=== PATIENT | female | born 1995 | race Caucasian/White ===

== ENCOUNTER 2022-02-04 19:00 | Inpatient (IN) | payer BC, OTHER ==
[2022-02-05] MEDS ORDERED: Ibuprofen 800 MG TAB PO PRN (08:54)
[2022-02-05] MEDS ORDERED: HYDROcodone/Acetaminophen 5/325 mg Tablet PO PRN (08:54)
[2022-02-05] MEDS ORDERED: Acetaminophen 500 MG TAB PO PRN (08:54)
[2022-02-05] MEDS ORDERED: Butorphanol Tartrate 1 MG/ML VIAL SLOW IVP PRN (08:54)
[2022-02-05] MEDS ORDERED: Promethazine HCl 25 MG/ML VIAL IM PRN ×2 (08:54→19:55)
[2022-02-05] MEDS ORDERED: Diphenoxylate HCl/Atropine Tablet PO PRN (08:54)
[2022-02-05] MEDS ORDERED: Misoprostol 200 MCG TAB PR PRN (08:54)
[2022-02-05] MEDS ORDERED: Carboprost 250 MCG/ML AMP IM PRN (08:54)
[2022-02-05] MEDS ORDERED: Ondansetron PF 4 MG/2 ML Vial IVP PRN ×2 (08:54→19:55)
[2022-02-05] MEDS ORDERED: Lidocaine 1% (PF) 30 ML VIAL SC PRN (08:54)
[2022-02-05] MEDS ORDERED: Methylergonovine 0.2 MG/ML VIAL IM PRN (08:54)
[2022-02-05] MEDS ORDERED: hydrALAZINE 20 MG/ML VIAL SLOW IVP PRN (08:54)
[2022-02-05] MEDS ORDERED: NS w/ Oxytocin 30 units 500 ML IV SCH ×2 (09:00)
[2022-02-05] MEDS: Lactated Ringer's 1,000 ML IV SCH (14:10)
[2022-02-05 14:43] LABS: Hemoglobin 11.3 g/dL (12.0-15.5); Mean Corpuscular HGB CONC 32.9 g/dL (32.0-36.0); Mean Corpuscular Hemoglobin 26.5 pg (27.0-33.0); Mean Corpuscular Volume 80.5 fl (81.6-98.3); Mean Platelet Volume 11.6 fl (7.4-10.4); Platelet Count 357 10x3/uL (150-450); RBC Distribution Width 16.1 % (11.5-14.5); Red Blood Cell (RBC) Count 4.26 10x6/uL (3.90-5.03); White Blood Cell (WBC) Count 11.1 10x3/uL (3.5-10.5)
[2022-02-05 15:05] VITALS: BMI 44.2
[2022-02-05 15:15] LABS: HBSAg Index 0.21 S/CO (0-0.99); Hep B Surf Ag Non-Reactive S/CO (NonReactive); Syphilis Antibody Nonreactive (Nonreactive); Syphilis Antibody Index 0.03 S/CO (<1.00 Non-Reactive)
[2022-02-05] MEDS ORDERED: Fentanyl 2 mcg/Bup 0.1% Cadd 100 ML ONE (19:00)
[2022-02-05] MEDS ORDERED: Acetaminophen 325 MG TAB PO PRN (19:55)
[2022-02-05] MEDS ORDERED: Naloxone HCl 0.4 mg/ml Vial IVP PRN ×2 (19:55)
[2022-02-05] MEDS ORDERED: diphenhydrAMINE 50 MG/ML VIAL IVP PRN (19:55)
[2022-02-05] MEDS ORDERED: Moisturizing Cream (Eucerin) 113 GM JAR TOP PRN (19:55)
[2022-02-05] MEDS ORDERED: Lactated Ringer's 500 ML IV PRN (19:55)
[2022-02-05] MEDS ORDERED: ePHEDrine Sulfate 50 MG/10 ML VIAL SLOW IVP PRN (19:55)
[2022-02-05] MEDS ORDERED: Communication Order-Pharmacy FS SCH (20:00)
[2022-02-05] MEDS ORDERED: Fentanyl 2 mcg/Bupivacaine 0.1% Cassette 100 ML EPIDURAL SCH (20:00)
[2022-02-05 22:41] LABS: SARS-CoV-2 NAA Rapid Test Not Detected (NotDetected)
[2022-02-05 22:50] LABS: ALT (SGPT) 23 U/L (8-55); AST (SGOT) 33 U/L (5-34); Albumin 3.5 g/dL (3.5-5.0); Alkaline Phosphatase 125 U/L (40-110); Anion Gap 18 mmol/L (10-20); BUN (Urea Nitrogen) 11 mg/dL (7.0-18.7); Bilirubin, Total 0.2 mg/dL (0.2-1.2); Calc. Creatinine Clearance 256 mL/min (70-130); Calcium 9.4 mg/dL (7.8-10.44); Carbon Dioxide 17 mmol/L (22-29); Chloride 106 mmol/L (98-107); Estimated GFR 127; Globulin 3.2 g/dL (2.4-3.5); Glucose 117 mg/dL (70-105); Potassium 4.7 mmol/L (3.5-5.1); Protein, Total 6.7 g/dL (6.0-8.3); Sodium 136 mmol/L (136-145)
[2022-02-06] MEDS ORDERED: diphenhydrAMINE 25 MG CAP PO PRN (04:41)
[2022-02-06] MEDS ORDERED: Ondansetron PF 4 MG/2 ML Vial IVP PRN (04:41)
[2022-02-06] MEDS ORDERED: Preparation H Ointment 28 GM TUBE PR PRN (04:41)
[2022-02-06] MEDS ORDERED: Benzocaine-Menthol 82.5 ML CAN TOP PRN (04:41)
[2022-02-06] MEDS ORDERED: Boostrix 0.5 ML (Tdap) VIAL (>/=7 yrs of age) IM ONE (04:41)
[2022-02-06] MEDS ORDERED: Promethazine HCl 25 MG/ML VIAL IM PRN (04:41)
[2022-02-06] MEDS ORDERED: HYDROcodone/Acetaminophen 5/325 mg Tablet PO PRN ×2 (04:41)
[2022-02-06] MEDS ORDERED: Bisacodyl 10 MG SUPP PR PRN (04:41)
[2022-02-06] MEDS ORDERED: Lanolin Ointment 7 GM TUBE TOP PRN (04:41)
[2022-02-06] MEDS ORDERED: hydrALAZINE 20 MG/ML VIAL SLOW IVP PRN (04:41)
[2022-02-06] MEDS ORDERED: Milk Of Magnesia 30 ML UDCUP PO PRN (04:41)
[2022-02-06] MEDS: Docusate 100 MG CAP PO SCH ×2 (09:33→21:18)
[2022-02-06] MEDS: Ferrous Sulfate 325 MG TAB PO SCH ×2 (09:33→19:11)
[2022-02-06] MEDS: Ibuprofen 800 MG TAB PO SCH ×2 (09:33→17:53)
[2022-02-06] MEDS: Prenatal Vitamin 1 TAB PO SCH (09:34)
[2022-02-06] MEDS: Labetalol HCl 100 MG TAB PO SCH ×2 (10:37→21:18)
[2022-02-06] MEDS: Lactated Ringer's 1,000 ML IV SCH (13:40)
[2022-02-07] MEDS: Ibuprofen 800 MG TAB PO SCH ×2 (01:49→10:03)
[2022-02-07] MEDS: Ferrous Sulfate 325 MG TAB PO SCH (07:10)
[2022-02-07] MEDS: Prenatal Vitamin 1 TAB PO SCH (09:28)
[2022-02-07] MEDS: Labetalol HCl 100 MG TAB PO SCH (09:28)
[2022-02-07] MEDS: Docusate 100 MG CAP PO SCH (09:28)
[2022-02-07 09:32] VITALS: BP 130/72; TEMP 98.6
== END 2022-02-07 13:36 | disposition home or self-care (01) | DRG 807 ==
LOC: CSHLD 02-05 13:36 → CSHPED 02-06 09:50
PROVIDERS: ADMIT Student in an Organized Health Care Education/Training Program; ATTEND Student in an Organized Health Care Education/Training Program
PROC: 10E0XZZ Delivery of Products of Conception, External Approach (ICD-10-PCS; principal; 2022-02-05)
PROC: 0HQ9XZZ Repair Perineum Skin, External Approach (ICD-10-PCS; 2022-02-05)
PROC: 10907ZC Drainage of Amniotic Fluid, Therapeutic from Products of Conception, Via Natural or Artificial Opening (ICD-10-PCS; 2022-02-05)
DX: O48.0 Post-term pregnancy (principal); Z37.0 Single live birth; Z20.822 Contact with and (suspected) exposure to COVID-19; Z3A.41 41 weeks gestation of pregnancy; O76 Abnormality in fetal heart rate and rhythm complicating labor and delivery; O70.0 First degree perineal laceration during delivery
CPT/HCPCS: 51702; 80053; 85027; 86780; 86850; 86900; 86901; 87340; J0360; J2590; J7120; U0002